=== PATIENT | male | born 1960 | race Caucasian/White ===

== ENCOUNTER 2017-06-16 09:04 | Day surgery (SDC) | payer OTHER ==
[2017-06-10 12:54] VITALS: BMI 26.9
[2017-06-16] MEDS ORDERED: ONDANSETRON 4 MG/2 ML VIAL ONE (09:23)
[2017-06-16] MEDS ORDERED: DEXAMETHASONE SOD PHOSPHATE 4 MG/1 ML VIAL ONE (09:23)
[2017-06-16] MEDS ORDERED: ceFAZolin SODIUM 1 GM VIAL ONE (09:23)
[2017-06-16] MEDS ORDERED: MIDAZOLAM HCL 2 MG/2 ML SINGLE DOSE VIAL ONE (10:46)
[2017-06-16] MEDS ORDERED: ROPIVACAINE HCL 0.5% 30ML VIAL ONE (10:46)
[2017-06-16] MEDS ORDERED: DEXAMETHASONE SOD PHOSPHATE/PF 10 MG/ML SDV ONE (10:46)
[2017-06-16] MEDS ORDERED: EPINEPHrine 1:1,000 1 MG/1 ML - 30ML VIAL (INJECTION) ONE (11:08)
--- NOTE | 2017-06-16 11:19 | OP ---
Operative Note - Note: Operative Date: 06/16/17 Pre-Operative Diagnosis: r sh tear Operation: scope r sh Findings: tears Operative Report Dictated: Yes
--- NOTE | 2017-06-16 11:20 | HP ---
History & Physical Update - History History: No Change - Physical Physical: No Change - Assessment Assessment: No Change - Plan Plan: No Change
[2017-06-16] MEDS ORDERED: KETOROLAC TROMETHAMINE 30 MG/1 ML VIAL ONE (11:49)
[2017-06-16] MEDS ORDERED: oxyCODONE HCL 5 MG TABLET PO PRN (13:27)
--- NOTE | 2017-06-16 13:27 | SURG ---
Surgery Photo Offset Printer Note Photo Offset Printer: Estee Porras PA-C Date of Service: 06/16/17 Diagnosis: Right shoulder Rotator cuff tear, subscapularis tear, impingement Procedure: Right shoulder arthroscopy with rotator cuff repair, subscapularis repair and subacromial decompression I was present for the entirety of the operative procedure. For further detail, please refer to operative report. Visit type - Case Type Case Type: Scheduled Admission - Emergency Emergency Visit: No - New patient This patient is new to me today: Yes Date on this admission: 06/16/17
[2017-06-16] MEDS ORDERED: LACTATED RINGERS SOLUTION 1,000 ML IV SCH (13:30)
[2017-06-16] MEDS ORDERED: CEFAZOLIN 1 GM in DEXTROSE 5%-WATER - 50 ML IVPB ONE (14:21)
[2017-06-16] MEDS ORDERED: CEFAZOLIN 1 GM/D5W 50 ML ONE (15:08)
[2017-06-16 16:14] VITALS: BP 129/78; PULSE 78; TEMP 99
[2017-06-16] MEDS ORDERED: IBUPROFEN 600 MG TABLET (FP) PO SCH (22:00)
[2017-06-16] MEDS ORDERED: [UNRECOGNIZED DRUG - OTHER] PO SCH (22:00)
--- NOTE | 2017-06-17 10:14 | OP ---
DATE OF OPERATION: 06/16/2017 SURGEON: Flakito Jules MD INK PRINTER: JASON Perea ANTIBIOTIC: Kefzol. COMPLICATIONS: None. WOUND TYPE: Clean. SPECIMENS: Shavings. BLOOD LOSS: Minimal. FINDINGS: See text. 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 He has a positive MRI for rotator cuff tearing, and exam is consistently positive for internal rotation pain as he tries to lift his hand off his back, i.e. subscapularis liftoff. His MRI shows subscapularis tendinopathy. At surgery, he was seen to have a small tear of the subscapularis tendon just below the rolled edge, which we fixed with a Q-FIX All-Suture [place]. He did have a fairly large tear of the supraspinatus above the sagittal quarter, which we repaired in a double-row fashion. He had mild impingement morphology. He did not have any SLAP lesion at all. His biceps was perfect. His articular surfaces were good. He had no labral tearing. He had no loose bodies in the gutter. There was no sign of subcoracoid impingement. Biceps was completely clean. PROCEDURE PERFORMED: Rotator cuff repair, subscapularis repair, and arthroscopic subacromial decompression. DESCRIPTION OF PROCEDURE: The patient was brought to the operating room, placed on the table in the beach-chair position. All prominences were well padded. Care was taken with the neck. Sterile prepping and draping was performed with Betadine solution. Bony landmarks were marked and arthroscopy was commenced through the posterior portal of A[place]lia. Arthroscopic Findings: As noted, articular surfaces were good. There was no SLAP lesion at all. There was cartilage beneath the upper yang of the superior labrum, but the biceps anchor was solid. We pulled the biceps, saw it was clean. We could just see some tearing underneath with the supraspinatus area. Going forward and carefully examining the subscapularis, the upper portion looked fine. We went down about 5 mm. We could see pulling off of the fibers from the lesser tuberosity. We therefore repaired here. We used a 1.7-mm All-Suture [place] by [employer], the Q-FIX type, placed this with good pull-back control. We then passed sutures up in a vertical mattress fashion and tied these down securely with outside. We prepared the bone first. We had excellent apposition now. Arthroscopic Subacromial Decompression: We went out externally. He had extreme fuzziness of the coracoacromial ligament, indicating chronic impingement, etc. We took this down and found moderate anteromedial hook. We performed a bi-planing acromioplasty for this using bone instruments. Rotator Cuff Repair: We probed the entire cuff. It did look ratty posteriorly, but there was no full-thickness tearing. There was definitely full-thickness tearing at the anterior aspect of the supraspinatus going back about 8 mm. We debrided this back to good tissue. We prepared the juxta-articular surface of the greater tuberosity. We created a submersible pilot hole and placed our 5.5-mm triple-loaded Healix. We placed a posterior horizontal mattress to capture the tear and also some of the superficially torn fibers of the posterior more cuff. We placed 2 simples using anterograde passage anteriorly. We tied these down. We then did a double second row using two 4.75 Bio SwiveLock. We removed all loose chips and bits in the shoulder. We closed the portals with Monocryl. Dressing was applied. He will be discharged with shoulder sheath. We are giving him Percocet for pain. I will see him in the office for followup in 1 week. FLAKITO JULES M.D. [id number]
== END 2017-06-16 16:16 | disposition home or self-care (01) ==
LOC: FASU 09:04
PROVIDERS: ATTEND Orthopaedic Surgery
PROC: 0RNJ4ZZ Release Right Shoulder Joint, Percutaneous Endoscopic Approach (ICD-10-PCS; 2017-06-16)
PROC: 0LB14ZZ Excision of Right Shoulder Tendon, Percutaneous Endoscopic Approach (ICD-10-PCS; principal; 2017-06-16 11:47)
DX: M75.121 Complete rotator cuff tear or rupture of right shoulder, not specified as traumatic (principal)